=== PATIENT | female | born 1950 | race African-American/Black ===

== ENCOUNTER 2017-01-29 23:19 | Inpatient (IN) | payer MEDICARE, MEDICAID ==
[~2017-01-29] VITALS: Ht 162.6 cm; Wt 97.5 kg
[2017-01-30] MEDS ORDERED: ONDANSETRON HCL 4MG/2ML VIAL IV STA (01:08)
[2017-01-30] MEDS ORDERED: SODIUM CHLORIDE 0.9% 1,000 ML IV ONE (01:08)
[2017-01-30 01:54] LABS: BASOPHILS % 0.7 % (0.0-2.0); EOSINOPHILS % 0.1 % (0.0-5.0); HEMATOCRIT. 46.7 % (36.0-48.0); HEMOGLOBIN. 15.8 g/dL (12.0-16.0); MEAN CORPUSCULAR HEMOGLOBIN 30.8 pg (28.0-32.0); MEAN CORPUSCULAR VOLUME 91.2 fL (81.0-99.0); MEAN PLATELET VOLUME 8.3 fl (7.4-10.4); MONOCYTES % 8.4 % (2.0-8.0); NEUTROPHILS % 69.8 % (40.0-76.0); PLATELET 244 x1000/uL (130-400); RED BLOOD CELL COUNT 5.12 mill/uL (4.2-5.4); RED CELL DISTRIBUTION WIDTH 13.6 % (11.6-14.6)
[2017-01-30] MEDS ORDERED: CEFTRIAXONE 1 G PREMIX 50 ML IV NR (02:00)
[2017-01-30] MEDS ORDERED: LORAZEPAM 2MG/ML CPJ IV NR (02:00)
[2017-01-30 02:04] LABS: AMMONIA 21 uMol/L (<32)
[2017-01-30 02:09] LABS: CARBON DIOXIDE 24 mEq/L (21-32); CHLORIDE 100 mEq/L (98-107)
[2017-01-30 02:10] LABS: BETA HYDROXYBUTYRATE 0.2 mMol/L (0.0-0.3); CREATINE KINASE 112 IU/L (26-192); TROPONIN I < 0.02 ng/mL (0.00-0.04)
[2017-01-30] MEDS ORDERED: LORAZEPAM 2MG/ML CPJ ONE (02:31)
[2017-01-30 08:00] VITALS: BP 155/108
[2017-01-30 09:14] LABS: BG BASE EXCESS 0.6 mmol/L (-2.0-2.0); BG DEOXYHEMOGLOBIN 3.8 % (0.0-5.0); BG FRACTION INSPIRED OXYGEN 21; BG HCO3 ACT 24.8 mmol/L (22.0-26.0); BG METHEMOGLOBIN 0.2 % (0.0-1.5); BG OXYGEN SATURATION 96.2 % (92.0-98.5); BG PCO2 38.7 mmHg (35.0-45.0); BG PH 7.425 (7.350-7.450); BG PO2 77.8 mmHg (75.0-100.0); BG SAMPLE SITE RIGHT RADIAL; BG TOTAL HEMOGLOBIN 15.4 g/dL (12.0-18.0); BG VENT MODE ROOM AIR
[2017-01-30 09:40] VITALS: BP 155/88
[2017-01-30] MEDS ORDERED: NA PHOS,M-B/NA PHOS,DI-BA ENEMA 118ML PR PRN (11:00)
[2017-01-30] MEDS ORDERED: NITROGLYCERIN 0.4MG TABLET SL SL PRN (11:00)
[2017-01-30] MEDS ORDERED: ACETAMINOPHEN 325MG TABLET PO PRN (11:00)
[2017-01-30] MEDS ORDERED: IPRATROPIUM/ALBUTEROL 0.5-3(2.5)MG/3ML NEB INH PRN (11:00)
[2017-01-30] MEDS ORDERED: DIPHENHYDRAMINE 50MG/ML VIAL IV PRN (11:00)
[2017-01-30] MEDS ORDERED: DOCUSATE SODIUM 100MG CAPSULE PO PRN (11:00)
[2017-01-30] MEDS ORDERED: GUAIFENESIN 200MG/10ML SUGAR FREE UDC PO PRN (11:00)
[2017-01-30] MEDS ORDERED: MAGNESIUM/ALUMINUM HYDROXIDE/SIMETHICONE 30ML UDC PO PRN (11:00)
[2017-01-30] MEDS ORDERED: ONDANSETRON HCL 4MG/2ML VIAL IV PRN (11:00)
[2017-01-30] MEDS ORDERED: KETOROLAC 15MG/ML VIAL IV PRN (11:00)
[2017-01-30] MEDS ORDERED: DEXTROSE 50% WATER 50ML SYRINGE IV PRN (11:30)
[2017-01-30 12:00] VITALS: BP 172/71
[2017-01-30] MEDS: BLOOD SUGAR DIAGNOSTIC STRIP TEST SCH ×3 (12:17→21:00)
[2017-01-30] MEDS ORDERED: LEVOFLOXACIN 500MG PREMIX 100 ML IV SCH (12:30)
[2017-01-30] MEDS: AMLODIPINE 10MG TABLET PO SCH (12:35)
[2017-01-30] MEDS: PANTOPRAZOLE SODIUM 40 MG/VIAL IV SCH (12:35)
[2017-01-30] MEDS: INSULIN LISPRO 100 UNITS/ML SUBCUT SCH ×3 (13:51→22:12)
[2017-01-30] MEDS: SODIUM CHLORIDE 0.9% 1,000 ML IV SCH (13:52)
[2017-01-30] MEDS: ENOXAPARIN 30MG/0.3ML SYR SUBCUT SCH ×2 (15:00→17:06)
[2017-01-30 16:00] VITALS: BP 163/79
[2017-01-30] MEDS: LEVOFLOXACIN 500MG PREMIX 100 ML IV SCH (17:06)
[2017-01-30 18:02] LABS: INR 1.1; PROTHROMBIN TIME 11.7 sec (9.4-11.6)
[2017-01-30 18:06] LABS: BASOPHILS % 0.9 % (0.0-2.0); EOSINOPHILS % 1.1 % (0.0-5.0); HEMATOCRIT. 44.2 % (36.0-48.0); HEMOGLOBIN. 14.9 g/dL (12.0-16.0); LYMPHOCYTES % 33.7 % (20.0-50.0); MEAN CORPUSCULAR HEMOGLOBIN 30.6 pg (28.0-32.0); MEAN CORPUSCULAR VOLUME 90.4 fL (81.0-99.0); MEAN PLATELET VOLUME 8.4 fl (7.4-10.4); MONOCYTES % 10.6 % (2.0-8.0); NEUTROPHILS % 53.7 % (40.0-76.0); PLATELET 182 x1000/uL (130-400); RED BLOOD CELL COUNT 4.89 mill/uL (4.2-5.4)
[2017-01-30 18:22] LABS: CARBON DIOXIDE 25 mEq/L (21-32); CHLORIDE 101 mEq/L (98-107); CREATINE KINASE 109 IU/L (26-192); HDL CHOLESTEROL 46 mg/dL (40-59); LDL CHOLESTEROL 127 mg/dL (5-100); TROPONIN I < 0.02 ng/mL (0.00-0.04)
[2017-01-30 20:00] VITALS: BP 152/84
[2017-01-30] MEDS: ASCORBIC ACID 500 MG TABLET PO SCH (22:10)
[2017-01-30] MEDS: LISINOPRIL 20MG TABLET PO SCH (22:10)
[2017-01-30] MEDS: INSULIN DETEMIR UD 100 UNITS/ML SYR SUBCUT SCH (22:13)
[2017-01-31] VITALS (8 sets, daily range): BP systolic 135–175; BP diastolic 74–94
[2017-01-31 00:18] LABS: CLARITY URINE CLEAR (CLEAR); COLOR URINE YELLOW (YELLOW); GLUCOSE URINE 3+ (NEGATIVE); KETONES URINE TRACE (NEGATIVE); LEUKOCYTE ESTERASE URINE NEGATIVE (NEGATIVE); NITRITE URINE NEGATIVE (NEGATIVE); OCCULT BLOOD URINE 2+ (NEGATIVE); PH URINE 6.5 (4.5-8.0); PROTEIN URINE 1+ (NEGATIVE); SPECIFIC GRAVITY URINE 1.024 (1.005-1.030)
[2017-01-31 00:40] LABS: *AMPHETAMINES SCREEN URINE NEGATIVE (NEGATIVE); *BARBITURATES SCREEN URINE NEGATIVE (NEGATIVE); *BENZODIAZEPINES SCREEN URINE NEGATIVE (NEGATIVE); *COCAINE SCREEN URINE NEGATIVE (NEGATIVE); CANNABINOID URINE SCREEN NEGATIVE (NEGATIVE); METHADONE URINE SCREEN NEGATIVE (NEGATIVE); OPIATES URINE SCREEN NEGATIVE (NEGATIVE); PHENCYCLIDINE URINE SCREEN NEGATIVE (NEGATIVE)
[2017-01-31 02:31] LABS: CREATINE KINASE 122 IU/L (26-192); CREATINE KINASE MB FRACTION 1.1 ng/mL (0.5-3.6); TROPONIN I < 0.02 ng/mL (0.00-0.04)
[2017-01-31] MEDS: BLOOD SUGAR DIAGNOSTIC STRIP TEST SCH ×4 (07:02→21:39)
[2017-01-31] MEDS: SODIUM CHLORIDE 0.9% 1,000 ML IV SCH ×2 (07:04→21:38)
[2017-01-31] MEDS: INSULIN LISPRO 100 UNITS/ML SUBCUT SCH ×4 (08:48→21:45)
[2017-01-31] MEDS: ASPIRIN 325MG EC TABLET PO SCH (08:58)
[2017-01-31] MEDS: AMLODIPINE 10MG TABLET PO SCH (08:59)
[2017-01-31] MEDS: LISINOPRIL 20MG TABLET PO SCH ×2 (08:59→21:39)
[2017-01-31] MEDS: ZINC SULFATE 220 MG ( 50 ) CAPSULE PO SCH (08:59)
[2017-01-31] MEDS: PANTOPRAZOLE SODIUM 40 MG/VIAL IV SCH (09:01)
[2017-01-31] MEDS: ENOXAPARIN 30MG/0.3ML SYR SUBCUT SCH ×2 (09:02→21:38)
[2017-01-31] MEDS: ASCORBIC ACID 500 MG TABLET PO SCH ×2 (09:16→21:39)
[2017-01-31] MEDS: LEVOFLOXACIN 500MG PREMIX 100 ML IV SCH (18:11)
[2017-01-31] MEDS: INSULIN DETEMIR UD 100 UNITS/ML SYR SUBCUT SCH (21:45)
[2017-02-01] VITALS: BP 151/100
[2017-02-01] MEDS: SODIUM CHLORIDE 0.9% 1,000 ML IV SCH ×2 (02:56→16:10)
[2017-02-01 04:00] VITALS: BP 151/82
[2017-02-01] MEDS: BLOOD SUGAR DIAGNOSTIC STRIP TEST SCH ×4 (06:45→21:20)
[2017-02-01 07:55] VITALS: BP 169/92
[2017-02-01] MEDS: ASCORBIC ACID 500 MG TABLET PO SCH ×2 (08:46→21:19)
[2017-02-01] MEDS: INSULIN LISPRO 100 UNITS/ML SUBCUT SCH ×4 (08:48→21:28)
[2017-02-01] MEDS: ENOXAPARIN 30MG/0.3ML SYR SUBCUT SCH ×2 (08:50→21:26)
[2017-02-01] MEDS: LISINOPRIL 20MG TABLET PO SCH ×2 (08:51→21:20)
[2017-02-01] MEDS: ZINC SULFATE 220 MG ( 50 ) CAPSULE PO SCH (08:52)
[2017-02-01] MEDS: AMLODIPINE 10MG TABLET PO SCH (08:52)
[2017-02-01] MEDS: ASPIRIN 325MG EC TABLET PO SCH (08:52)
[2017-02-01] MEDS: FAMOTIDINE 20MG/2ML VIAL IV SCH ×2 (08:55→21:19)
[2017-02-01 11:50] VITALS: BP 155/81
[2017-02-01] MEDS: CEFAZOLIN 1000MG PREMIX 50 ML IV SCH ×2 (16:10→21:19)
[2017-02-01 16:12] VITALS: BP 169/92
[2017-02-01] MEDS: CLONIDINE 0.1MG TABLET PO PRN (17:29)
[2017-02-01 20:00] VITALS: BP 160/85
[2017-02-01] MEDS: INSULIN DETEMIR UD 100 UNITS/ML SYR SUBCUT SCH (21:28)
[2017-02-02] VITALS: BP 152/76
[2017-02-02 04:00] VITALS: BP 160/82
[2017-02-02] MEDS: SODIUM CHLORIDE 0.9% 1,000 ML IV SCH ×2 (05:30→17:46)
[2017-02-02] MEDS: CEFAZOLIN 1000MG PREMIX 50 ML IV SCH ×3 (05:30→21:23)
[2017-02-02] MEDS: BLOOD SUGAR DIAGNOSTIC STRIP TEST SCH ×4 (06:35→21:23)
[2017-02-02 07:53] VITALS: BP 151/94
[2017-02-02] MEDS: ZINC SULFATE 220 MG ( 50 ) CAPSULE PO SCH (08:46)
[2017-02-02] MEDS: FAMOTIDINE 20MG/2ML VIAL IV SCH ×2 (08:46→21:22)
[2017-02-02] MEDS: ASPIRIN 325MG EC TABLET PO SCH (08:46)
[2017-02-02] MEDS: ASCORBIC ACID 500 MG TABLET PO SCH ×2 (08:46→21:22)
[2017-02-02] MEDS: ENOXAPARIN 30MG/0.3ML SYR SUBCUT SCH ×2 (08:48→21:23)
[2017-02-02] MEDS: INSULIN LISPRO 100 UNITS/ML SUBCUT SCH ×4 (08:50→21:24)
[2017-02-02] MEDS: LISINOPRIL 20MG TABLET PO SCH ×2 (08:51→21:22)
[2017-02-02] MEDS: AMLODIPINE 10MG TABLET PO SCH (08:51)
[2017-02-02 12:00] VITALS: BP 185/93
[2017-02-02] MEDS: CLONIDINE 0.1MG TABLET PO PRN (12:02)
[2017-02-02 16:47] VITALS: BP 139/67
[2017-02-02] MEDS ORDERED: SIMV20TA6 PO (17:18)
[2017-02-02] MEDS ORDERED: ATEN-42 PO (17:18)
[2017-02-02] MEDS ORDERED: GLIP10TA10 PO (17:18)
[2017-02-02] MEDS ORDERED: AMLO10TA80 PO (17:18)
[2017-02-02] MEDS ORDERED: PANT40TA4 PO (17:18)
[2017-02-02] MEDS ORDERED: ASPI-1159 PO (17:18)
[2017-02-02] MEDS ORDERED: HYDR25TA PO (17:18)
[2017-02-02] MEDS ORDERED: LEVVL SQ (17:18)
[2017-02-02] MEDS ORDERED: METF10002 PO (17:18)
[2017-02-02] MEDS ORDERED: STAR120 PO (17:18)
[2017-02-02] MEDS ORDERED: LISI40TA4 PO (17:18)
[2017-02-02 20:00] VITALS: BP 144/86
[2017-02-02] MEDS: INSULIN DETEMIR UD 100 UNITS/ML SYR SUBCUT SCH (21:25)
[2017-02-03] VITALS: BP 173/85
[2017-02-03] MEDS: CLONIDINE 0.1MG TABLET PO PRN (00:34)
[2017-02-03 04:00] VITALS: BP 158/80
[2017-02-03] MEDS: CEFAZOLIN 1000MG PREMIX 50 ML IV SCH (06:08)
[2017-02-03] MEDS: BLOOD SUGAR DIAGNOSTIC STRIP TEST SCH ×2 (06:28→12:20)
[2017-02-03 08:00] VITALS: BP 154/81
[2017-02-03] MEDS: ZINC SULFATE 220 MG ( 50 ) CAPSULE PO SCH (08:44)
[2017-02-03] MEDS: LISINOPRIL 20MG TABLET PO SCH (08:46)
[2017-02-03] MEDS: AMLODIPINE 10MG TABLET PO SCH (08:46)
[2017-02-03] MEDS: ASCORBIC ACID 500 MG TABLET PO SCH (08:46)
[2017-02-03] MEDS: ENOXAPARIN 30MG/0.3ML SYR SUBCUT SCH (08:47)
[2017-02-03] MEDS: FAMOTIDINE 20MG/2ML VIAL IV SCH (08:47)
[2017-02-03] MEDS: ASPIRIN 325MG EC TABLET PO SCH (08:47)
[2017-02-03] MEDS: INSULIN LISPRO 100 UNITS/ML SUBCUT SCH ×2 (08:56→13:56)
[2017-02-03] MEDS: SODIUM CHLORIDE 0.9% 1,000 ML IV SCH (09:21)
[2017-02-03 12:00] VITALS: BP 138/80
[2017-02-03 13:02] VITALS: BP 138/80
== END 2017-02-03 14:20 | DRG 871 ==
LOC: ER 23:19 → 6WST 01-30 04:00
PROVIDERS: ADMIT Internal Medicine; ATTEND Internal Medicine
DX: A41.9 Sepsis, unspecified organism (principal); G92 Toxic encephalopathy; E87.2 Acidosis; E87.1 Hypo-osmolality and hyponatremia; N39.0 Urinary tract infection, site not specified; E11.65 Type 2 diabetes mellitus with hyperglycemia; I10 Essential (primary) hypertension; Z79.4 Long term (current) use of insulin; E66.9 Obesity, unspecified; E78.00 Pure hypercholesterolemia, unspecified; Z86.73 Personal history of transient ischemic attack (TIA), and cerebral infarction without residual deficits; Z68.36 Body mass index [BMI] 36.0-36.9, adult
CPT/HCPCS: 36415; 36600; 70450; 70551; 71010; 80053; 80061; 80305; 80307; 80329; 81001; 82010; 82140; 82375; 82550; 82553; 82805; 82962; 83036; 83605; 84443; 84484; 85025; 85610; 87040; 87077; 87086; 87186; 93005; 93970; 96361; 96365; 96375; 97110; 97163; 97166; 97530; 99285; C1893; C9113; J0690; J1200; J1650; J1815; J1885; J1956; J2060; J3490; J7030; A4315

== ENCOUNTER → 2021-05-08 | Day surgery (SDC) | payer MEDICARE, MEDICAID ==
[~2021-05-08] VITALS: Ht 162.6 cm; Wt 85.7 kg
[~2021-05-08] MED LIST: ACETYLCHOLINE CHLORIDE INTRAOCULAR SOLUTION 1:100 ELECTROLYTE DILUENT IO ONE; APIX5TAB MT; ATOR40TA70 MT; BALANCED SALT IRRIG SOLN 15ML ONE; BALANCED SALT IRRIG SOLN COMB1 500ML OP SCH; BUPIVACAINE HCL/PF 0.75% (7.5MG/ML) 10ML ONE; CLOP-31 PO; DOCU100T MT; FAMO20TA8 MT; HYALURONATE SODIUM 10 MG/ML 0.55ML SYRINGE IO ONE; HYDROMORPHONE HCL/PF 2MG/ML CPJ IV PRN; INSU100I13 SQ; LABETALOL 5MG/ML SYR 20 MG/4 ML SYRINGE IV PRN; LIDOCAINE HCL 2%/EPINEPHRINE 1:100,000 20 ML VIAL INFIL ONE; MEPERIDINE HCL/PF 25MG/ML CPJ IV PRN; NIFE-33 MT; ONDANSETRON HCL 4MG/2ML INJ IV PRN; PHENYLEPHRINE 2.5% OPHTH 15 DROP/ML BOTTLE LEFTEYE ONE; PHENYLEPHRINE HCL 2.5% OPHTH DROPS 2ML ONE; PROPOFOL 10MG/ML 100ML 100 ML IV ONE; TETRACAINE 0.5% OPHTH DROPS 4ML ONE; TOBRAMYCIN/DEXAMETHASONE OPTH DROPS 2.5ML OP SCH; TROPICAMIDE 1% OPHTH DROPS 15ML LEFTEYE ONE; TROPICAMIDE 1% OPHTH DROPS 15ML ONE
== END | disposition home or self-care (01) ==
LOC: OR 06:52
PROVIDERS: ATTEND Ophthalmology
DX: E11.36 Type 2 diabetes mellitus with diabetic cataract (principal); H25.89 Other age-related cataract; I11.0 Hypertensive heart disease with heart failure; I50.9 Heart failure, unspecified; Z79.82 Long term (current) use of aspirin; Z79.84 Long term (current) use of oral hypoglycemic drugs; Z98.890 Other specified postprocedural states; Z86.73 Personal history of transient ischemic attack (TIA), and cerebral infarction without residual deficits; Z79.01 Long term (current) use of anticoagulants; Z96.1 Presence of intraocular lens
CPT/HCPCS: 66984; 82962; J1100; J2250; J2405; J2704; J3010; J3490; V2632